=== PATIENT | female | born 1975 | race Caucasian/White ===

== ENCOUNTER 2018-08-03 21:22 | Emergency (ER) | payer OTHER ==
[~2018-08-03] VITALS: Ht 177.8 cm; Wt 79.4 kg
[2018-08-03] MEDS ORDERED: CELEXA20 MG PO (21:33)
[2018-08-03] MEDS ORDERED: XANAX 0.25 MG0.25 MG PO (21:33)
[2018-08-03] MEDS ORDERED: HYDROCODONE-AP1 EAC6 PO (23:13)
[2018-08-03] MEDS ORDERED: KEFLEX500 M1 PO (23:13)
[2018-08-03] MEDS ORDERED: KEFLEX250 MG/5 M PO (23:47)
[2018-08-03] MEDS ORDERED: HYDROCODONE-ACE15 ML PO (23:47)
[2018-08-03 23:52] VITALS: BP 145/94
== END 2018-08-04 00:20 | disposition home or self-care (01) ==
LOC: M.ERS 21:22
DX: S01.81XA Laceration without foreign body of other part of head, initial encounter (principal); F17.210 Nicotine dependence, cigarettes, uncomplicated; Z90.710 Acquired absence of both cervix and uterus; W01.0XXA Fall on same level from slipping, tripping and stumbling without subsequent striking against object, initial encounter; Y93.89 Activity, other specified; Y92.89 Other specified places as the place of occurrence of the external cause; Y99.8 Other external cause status